=== PATIENT | male | born 1965 | race Caucasian/White ===

== ENCOUNTER 2022-06-03 00:36 | Emergency (ER) | payer BC ==
[2022-06-03] MEDS ORDERED: KETOROLAC 30 MG/ML INJ ONE (01:24)
[2022-06-03] MEDS ORDERED: HYDROMORPHONE HCL 0.5 MG/0.5 ML INJ ONE (01:24)
[2022-06-03] MEDS ORDERED: TAMSULOSIN 0.4 MG SR CAP ONE (01:24)
[2022-06-03] MEDS ORDERED: MAGNESIUM SULFATE 1 gm IVPB 1 GM/100 ML BAG IV ONE (01:24)
--- NOTE | 2022-06-03 03:15 | EDPHYS ---
Physician Documentation [facility] Name: Panfilo Vasquez Age: 57 yrs Sex: Male : 1965 Arrival Date: 06/03/2022 Time: 00:38 Bed 7 Private MD: Dylon Larsen ED Physician Elias Mejias HPI: 06/03 01:14 This 57 yrs old Male presents to ER via Ambulatory with complaints of Possible Kidney rn Stone. 01:14 The patient complains of pain in the right low back. The pain radiates to the abdomen rn and pelvis. Onset: The symptoms/episode began/occurred last night. Modifying factors: The symptoms are alleviated by. Associated signs and symptoms: Pertinent negatives: fever, hematuria. Severity of pain: At its worst the pain was moderate in the emergency department the pain is unchanged. The patient has experienced similar episodes in the past. The patient has not recently seen a physician. Historical: - Allergies: 00:58 No Known Allergies; kd3 - Home Meds: 00:58 metformin Oral [Active]; Glipizide Oral [Active]; kd3 01:02 metoprolol tartrate Oral [Active]; kd3 - PMHx: 00:58 Diabetes mellitus; kd3 01:02 Hypertensive disorder; kd3 - Immunization history:: Adult Immunizations up to date. - Social history:: Smoking status: Patient reports the use of cigarette tobacco products, smokes a pipe daily . - Family history:: not pertinent. - Hospitalizations: : No recent hospitalization is reported. ROS: 01:14 Constitutional: Negative for fever, chills, and weight loss, Cardiovascular: Negative rn for chest pain, palpitations, and edema, Respiratory: Negative for shortness of breath, cough, wheezing, and pleuritic chest pain, Abdomen/GI: + right lower abd pain Back: + right flank pain : + right testicular pain MS/Extremity: Negative for injury and deformity, Skin: Negative for injury, rash, and discoloration, Neuro: Negative for headache, weakness, numbness, tingling, and seizure. Exam: 01:14 Constitutional: This is a well developed, well nourished patient who is awake, alert, rn appears uncomfortable Head/Face: Normocephalic, atraumatic. Cardiovascular: Regular rate and rhythm. No pulse deficits. Respiratory: No increased work of breathing, no retractions or nasal flaring. Abdomen/GI: Soft, non-tender Back: No costovertebral tenderness. Skin: Warm, dry MS/ Extremity: Pulses equal, no cyanosis. Vital Signs: 01:01 Pulse 79; Resp 18; Pulse Ox 99% on R/A; kd3 01:02 BP 142 / 66; Weight 121.11 kg; Height 6 ft. 1 in. (185.42 cm); Pain 9/10; kd3 02:43 Temp 98.2; kd3 01:02 Body Mass Index 35.23 (121.11 kg, 185.42 cm) kd3 MDM: 00:41 Patient medically screened. rn 03:12 Differential diagnosis: nephrolithiasis. Data reviewed: vital signs, nurses notes, laboratory helper test result(s), radiologic studies, CT scan, and as a result, I will discharge patient. Counseling: I had a detailed discussion with the patient and/or guardian regarding: the historical points, exam findings, and any diagnostic results supporting the discharge/admit diagnosis, lab results, radiology results, the need for outpatient follow up, to return to the emergency department if symptoms worsen or persist or if there are any questions or concerns that arise at home. Response to treatment: the patient's symptoms have markedly improved after treatment, and as a result, I will discharge patient. Special discussion: I discussed with the patient/guardian in detail that at this point there is no indication for admission to the hospital. It is understood, however, that if the symptoms persist or worsen the patient needs to return immediately for re-evaluation. ED course: Pt passed kidney stone while giving urine sample, pain markedly improved. UA neg for infection. Feels much better, will dc home with return precautions.. 06/03 00:50 Order name: CT Stone Protocol rn 06/03 00:51 Order name: Urine Microscopic Only rn 06/03 00:50 Order name: IV Start; Complete Time: 01:50 rn 06/03 00:51 Order name: Urine Dipstick-Ancillary (obtain specimen); Complete Time: 02:42 rn 06/03 00:51 Order name: Cardiac monitoring; Complete Time: 01:50 rn 06/03 00:51 Order name: O2 Sat Monitoring; Complete Time: 01:50 rn Administered Medications: 01:49 Drug: Ketorolac 15 mg Route: IVP; Site: left forearm; kd3 03:26 Follow up: Response: No adverse reaction kd3 01:49 Drug: Magnesium Sulfate 1 grams Route: IVPB; Infused Over: 1 hrs; Site: right forearm; kd3 03:25 Follow up: Response: No adverse reaction; IV Status: Completed infusion kd3 01:50 Drug: Flomax (tamsulosin) 0.4 mg Route: PO; kd3 03:26 Follow up: Response: No adverse reaction; Pain is decreased kd3 01:50 Drug: Dilaudid (HYDROmorphone) 1 mg Route: IVP; Site: right forearm; kd3 03:26 Follow up: Response: No adverse reaction; Pain is decreased kd3 Disposition Summary: 06/03/22 03:14 Discharge Ordered Location: Home rn Problem: new rn Symptoms: have improved rn Condition: Stable rn Diagnosis - Calculus of kidney with calculus of ureter rn Followup: rn - With: Nik Jung MD - When: As needed - Reason: Recheck today's complaints, Re-evaluation by your physician Discharge Instructions: - Discharge Summary Sheet rn - Kidney Stones rn - Renal Colic rn - Dietary Guidelines to Help Prevent Kidney Stones rn Forms: - Medication Reconciliation Form rn - Thank You Letter rn - Antibiotic perianesthesia rn - Prescription Opioid Use rn Prescriptions: - Flomax 0.4 mg Oral capsule - take 1 capsule by ORAL route once daily As needed 1/2 hour following the same rn meal each day; 20 capsule; Refills: 0, Product Selection Permitted Signatures: Dispatcher [employer] EDElias Arnold MD MD rn Doucette, Kyli RN RN kd3 Corrections: (The following items were deleted from the chart) 02:59 00:51 CBC+H.LAB.BRZ ordered. EDMS EDMS 03:01 00:51 BASIC METABOLIC PANEL+C.LAB.BRZ ordered. EDMS EDMS
--- NOTE | 2022-06-03 03:15 | ER ---
Nurse's Notes [facility] Name: Panfilo Vasquez Age: 57 yrs Sex: Male : 1965 Arrival Date: 06/03/2022 Time: 00:38 Bed 7 Private MD: Dylon Larsen Diagnosis: Calculus of kidney with calculus of ureter Presentation: 06/03 00:56 Chief complaint: Patient states: about 4 o clock, I had a reddish tint urine. then kd3 about 9 o'clock I felt the pain start in the right kidney. I did take a hydrocodone that i had left over from a shoulder surgery but it didn't do anything. Coronavirus screen: Vaccine status: Patient reports receiving the 2nd dose of the covid vaccine. Ebola Screen: No symptoms or risks identified at this time. Initial Sepsis Screen: Does the patient meet any 2 criteria? No. Patient's initial sepsis screen is negative. Does the patient have a suspected source of infection? No. Patient's initial sepsis screen is negative. Risk Assessment: Do you want to hurt yourself or someone else? Patient reports no desire to harm self or others. Onset of symptoms was June 03, 2022. 00:56 Method Of Arrival: Ambulatory kd3 00:56 Acuity: CLAY 3 kd3 Triage Assessment: 00:58 General: Appears uncomfortable, Behavior is calm, cooperative. Pain: Complains of pain kd3 in right mid back and right low back. GI: No deficits noted. Historical: - Allergies: 00:58 No Known Allergies; kd3 - Home Meds: 00:58 metformin Oral [Active]; Glipizide Oral [Active]; kd3 01:02 metoprolol tartrate Oral [Active]; kd3 - PMHx: 00:58 Diabetes mellitus; kd3 01:02 Hypertensive disorder; kd3 - Immunization history:: Adult Immunizations up to date. - Social history:: Smoking status: Patient reports the use of cigarette tobacco products, smokes a pipe daily . - Family history:: not pertinent. - Hospitalizations: : No recent hospitalization is reported. Screenin:00 Abuse screen: Denies threats or abuse. Denies injuries from another. Nutritional kd3 screening: No deficits noted. Tuberculosis screening: No symptoms or risk factors identified. Fall Risk None identified. Assessment: 02:58 GI: Bowel sounds present X 4 quads. Abd is soft and non tender. kd3 Vital Signs: 01:01 Pulse 79; Resp 18; Pulse Ox 99% on R/A; kd3 01:02 BP 142 / 66; Weight 121.11 kg; Height 6 ft. 1 in. (185.42 cm); Pain 9/10; kd3 02:43 Temp 98.2; kd3 01:02 Body Mass Index 35.23 (121.11 kg, 185.42 cm) kd3 ED Course: 00:38 Patient arrived in ED. mr 00:39 Dylon Larsen MD is Private Physician. mr 00:41 Elias Mejias MD is Attending Physician. rn 00:53 Mady Nicholas RN is Primary Nurse. kd3 00:58 Triage completed. kd3 00:58 Arm band placed on right wrist. kd3 01:00 Patient has correct armband on for positive identification. kd3 02:05 CT Stone Protocol In Process Unspecified. EDMS 03:14 Nik Jung MD is Referral Physician. rn 03:25 No provider procedures requiring assistance completed. IV discontinued, intact, kd3 bleeding controlled, No redness/swelling at site. Pressure dressing applied. Administered Medications: 01:49 Drug: Ketorolac 15 mg Route: IVP; Site: left forearm; kd3 03:26 Follow up: Response: No adverse reaction kd3 01:49 Drug: Magnesium Sulfate 1 grams Route: IVPB; Infused Over: 1 hrs; Site: right forearm; kd3 03:25 Follow up: Response: No adverse reaction; IV Status: Completed infusion kd3 01:50 Drug: Flomax (tamsulosin) 0.4 mg Route: PO; kd3 03:26 Follow up: Response: No adverse reaction; Pain is decreased kd3 01:50 Drug: Dilaudid (HYDROmorphone) 1 mg Route: IVP; Site: right forearm; kd3 03:26 Follow up: Response: No adverse reaction; Pain is decreased kd3 Medication: 03:25 VIS not applicable for this client. kd3 Outcome: 03:14 Discharge ordered by . rn 03:25 Discharged to home ambulatory. kd3 03:25 Condition: stable 03:25 Discharge instructions given to patient, Instructed on discharge instructions, follow up and referral plans. medication usage, Demonstrated understanding of instructions, follow-up care, medications, Prescriptions given X 1. 03:26 Patient left the ED. kd3 Signatures: Dispatcher [employer] Carlyn Carlson Roman, MD MD rn Doucette, Kyli, RN RN kd3
[2022-06-03 03:31] LABS: Urine Bacteria <20 /HPF (NONE SEEN); Urine RBC >50 /HPF (NONE SEEN)
[2022-06-03 04:00] VITALS: O2SAT 99
[2022-06-03 04:01] VITALS: BP 142/66
[2022-06-03 04:03] VITALS: TEMP 98.2
--- NOTE | 2022-06-03 14:23 | RAD REPORT ---
EXAM DESCRIPTION: CT - Stone Protocol - 06/03/2022 5:57 am COMPARISON: None. CLINICAL HISTORY: [facility] MAIN right sided kidney stone TECHNIQUE: CT of the abdomen and pelvis was acquired without IV contrast material. Coronal and sag ittal reconstructions were obtained. Automated exposure control was utilized on this examination as a dose lowering technique. FINDINGS: Lung bases: A few tree-in-bud opacities are present in the right lower lobe. *Evaluation of solid organs is limited due to lack of IV contrast. Liver: Normal. Gallbladder and biliary: Normal gallbladder. Unremarkable biliary tree. Pancreas: Normal. Spleen: Normal. Adrenal glands: Normal adrenal glands. Kidneys: Mild right hydronephrosis. Nonobstructing renal calculi measure up to 5 mm on the right and 6 mm on the left. Mild bilateral perinephric fat stranding is present. Stomach and Small Bowel: The stomach and small bowel are normal. Urinary bladder: Normal. Prostate/Male Urogenital: Normal. Colon and Appendix: The colon is unremarkable. No evidence of appendicitis. Retroperitoneum and lymph nodes: Normal. Vascular: Mild atherosclerosis. Peritoneal cavity: No ascites or free air. Musculoskeletal and soft tissues: Soft tissues are unremarkable. Lumbar spondylosis is present. Grade 2 anterolisthesis L5 on S1. Bilateral L5 pars defects are present. No aggressive bone lesions. No compression fracture. IMPRESSION: ABDOMEN/PELVIS IMPRESSION: 1. Mild right hydronephrosis without visualized obstructing calculus. This could be seen with a recen tly passed stone. Bilateral nonobstructing renal calculi are present. 2. A few tree-in-bud opacities in the right lower lobe likely infectious or inflammatory. Electronically signed by: Juan Murray MD 06/03/2022 3:53 AM CDT Due to temporary technical issues with the PACS/Fluency reporting system, reports are being signed by the in house radiologist without review as a courtesy to ensure prompt reporting. The interpreting r adiologist is fully responsible for the content of the report.
== END 2022-06-03 03:26 | disposition home or self-care (01) ==
LOC: ER 00:36
DX: N20.2 Calculus of kidney with calculus of ureter (principal); E11.9 Type 2 diabetes mellitus without complications; I10 Essential (primary) hypertension; F17.290 Nicotine dependence, other tobacco product, uncomplicated
CPT/HCPCS: 81015; 76377; 74176; J3475; J1170

== ENCOUNTER 2024-11-12 13:16 | Emergency (ER) | payer BC ==
[2024-11-12] MEDS ORDERED: ONDANSETRON 4 MG/2 ML VIAL ONE (14:02)
[2024-11-12] MEDS ORDERED: HYDROMORPHONE HCL 1 MG/ML INJ ONE (14:02)
[2024-11-12] MEDS ORDERED: NA CHLORIDE 0.9% 1,000 ML ONE (14:02)
[2024-11-12 14:45] LABS: Absolute Basophils 0.1 K/uL (0-0.5); Absolute Eosinophils 0.4 K/uL (0-0.5); Absolute Lymphocytes (CBC) 1.8 K/uL (0.7-4.9); Absolute Monocytes 0.9 K/uL (0.1-1.3); Absolute Neutrophil 5.2 K/uL (1.8-8.0); Basophils % 1.3 % (0-1.3); Hematocrit 46.9 % (39.6-49.0); Lymphocytes % 21.6 % (15.3-44.8); MCH 31.8 pg (27.0-35.0); MCHC 34.1 g/dL (32.0-36.0); MCV 93.2 fL (80-100); MPV 7.7 fL (7.6-11.3); Neutrophils % 61.1 % (41.7-73.7); Nucleated Red Blood Cells % 0.1 % (0-0); Platelets 242 thou/uL (152-406); RBC Red Blood Cell Count 5.04 M/uL (4.33-5.43)
[2024-11-12 14:53] LABS: Specific Gravity 1.022 (1.005-1.030); Sqamous Epithelial None Seen /HPF (None Seen); Urine Bacteria None Seen /HPF (<20); Urine Bilirubin NEGATIVE (Negative); Urine Blood 3+ (OVER) (Negative); Urine Clarity Clear (Clear); Urine Color Yellow (Yellow); Urine Culture Reflex Order NOT NEEDED; Urine Glucose 4+ (Over) (Negative); Urine Ketones NEGATIVE (Negative); Urine Microscopic Reflex YN ORDER UMIC; Urine Mucus Slight /HPF (None Seen); Urine Nitrite NEGATIVE (Negative); Urine Protein NEGATIVE (Negative); Urine RBC >50 /HPF (None Seen); Urine Urobilinogen Normal (Normal); Urine WBC <5 /HPF (<5); Urine Yeast (Budding) Trace /HPF (None Seen); Urine pH 5.5 (5.0-7.0)
[2024-11-12 14:57] LABS: Albumin 3.7 g/dL (3.4-5.0); Anion Gap 7.1 mEq/L (5.0-15.0); Bilirubin Total 0.4 mg/dL (0.2-1.0); Globulin 3.8 g/dL (2.3-3.5); Potassium 4.1 mEq/L (3.5-5.1); Protein, Total 7.5 g/dL (6.4-8.2)
[2024-11-12] MEDS ORDERED: KETOROLAC 30 MG/ML INJ ONE (15:18)
--- NOTE | 2024-11-12 15:51 | RAD REPORT ---
EXAMINATION: CT Stone Protocol CLINICAL INDICATION: Male, 59 years old. right flank pain TECHNIQUE: CT abdomen and pelvis was performed, without IV contrast, as per department protocol. Axia l, sagittal and coronal reconstructions were obtained. One or more of the following dose reduction techniques were used: Automated exposure control, adjustment of the mA and kV according to the patien t size, and iterative reconstruction. Unless otherwise specified, incidental findings do not require dedicated imaging follow-up. COMPARISON: 06/30/2024 FINDINGS: The lack of intravenous contrast limits the sensitivity of this exam for evaluation of solid visceral organs, vascular structures, and retroperitoneum. LOWER CHEST: The visualized lung bases are clear. LIVER: Normal in size and contour. No focal lesion. BILIARY SYSTEM: Gallbladder is decompressed limiting evaluation. No other Suspicious abnormalities. SPLEEN: Normal size. No focal lesion. PANCREAS: No mass, ductal dilation, or zara-pancreatic fluid. ADRENALS: Normal; no mass. KIDNEYS AND URETERS: Normal size and contour. No hydronephrosis. Bilateral nonobstructing renal calcu li more abundant on the right largest on the right is at the lower pole measuring 7 mm, largest on the left is at the interpolar region measuring 9 mm URINARY BLADDER: Normal contour. GASTROINTESTINAL TRACT: No evidence of bowel obstruction, significant free fluid, free air or abscess . APPENDIX: Normal appendix. LYMPH NODES: No lymphadenopathy. MUSCULOSKELETAL: Grade 1 spondylolisthesis at L5-S1. No acute or suspicious osseous abnormality. ADDITIONAL FINDINGS: None. IMPRESSION: Bilateral nonobstructing renal calculi. No other acute or concerning abnormalities in the abdomen or pelvis, with evaluation limited by lack of IV contrast.
--- NOTE | 2024-11-12 16:36 | EDPHYS ---
Physician Documentation [facility] Name: Panfilo Vasquez Age: 59 yrs Sex: Male : 1965 Arrival Date: 11/12/2024 Time: 13:16 Bed 12 Private MD: ED Physician Aurelio Mercado HPI: 11/12 14:00 This 59 yrs old Male presents to ER via Ambulatory with complaints of Possible Kidney cp Stone. 14:00 The patient complains of pain in the right flank. The pain radiates to the right lower cp quadrant and right groin. 14:00 Onset: The symptoms/episode began/occurred last night, and became worse today. cp Associated signs and symptoms: Pertinent positives: hematuria, nausea, Pertinent negatives: diarrhea, fever, pain radiating to the lower extremities. Severity of pain: in the emergency department the pain is unchanged despite home interventions. The patient has experienced similar episodes in the past, today's symptoms are similar, to when the patient was apparently diagnosed with kidney stone. Historical: - Allergies: 13:25 No Known Allergies; cm10 - Home Meds: 13:25 Glipizide Oral [Active]; Metformin Oral [Active]; Metoprolol Tartrate Oral [Active]; cm10 Xarelto oral [Active]; Mounjaro subcutaneous [Active]; - PMHx: 13:25 diabetes mellitus; Hypertensive disorder; cm10 - Immunization history:: Adult Immunizations up to date. - Infectious Disease History:: Denies. - Social history:: Smoking status: Patient reports the use of cigarette tobacco products, PIPE. ROS: 14:05 Constitutional: Negative for body aches, chills, fever, poor PO intake, cp 14:05 Eyes: Negative for injury, pain, redness, and discharge, cp 14:05 ENT: Negative for drainage from ear(s), ear pain, sore throat, difficulty swallowing, difficulty handling secretions, 14:05 Cardiovascular: Negative for chest pain, edema, palpitations, 14:05 Respiratory: Negative for cough, shortness of breath, wheezing, 14:05 Abdomen/GI: Positive for abdominal pain, nausea, Negative for vomiting, diarrhea, constipation, black/tarry stool, rectal bleeding, 14:05 Back: Positive for flank pain, on the right, 14:05 : Positive for hematuria, 14:05 Neuro: Negative for altered mental status, headache, weakness, 14:05 All other systems are negative, Exam: 14:10 Constitutional: The patient appears in no acute distress, alert, awake, non-toxic, well cp developed, well nourished, uncomfortable, 14:10 Head/Face: Normocephalic, atraumatic. cp 14:10 Eyes: Periorbital structures: appear normal, Conjunctiva: normal, no exudate, no injection, Sclera: no appreciated abnormality, Lids and lashes: appear normal, bilaterally, 14:10 ENT: External ear(s): are unremarkable, Nose: is normal, Mouth: Lips: moist, Oral mucosa: moist, Posterior pharynx: Airway: no evidence of obstruction, patent, 14:10 Chest/axilla: Inspection: normal, 14:10 Cardiovascular: Rate: normal, Rhythm: regular, Edema: is not appreciated, JVD: is not appreciated, 14:10 Respiratory: the patient does not display signs of respiratory distress, Respirations: normal, no use of accessory muscles, no retractions, labored breathing, is not present, Breath sounds: are clear throughout, no decreased breath sounds, 14:10 Abdomen/GI: Inspection: abdomen appears normal, Bowel sounds: active, all quadrants, Palpation: soft, in all quadrants, severe abdominal tenderness, in the right lower quadrant and right flank, rebound tenderness, is not appreciated, voluntary guarding, is elicited in the right flank and right lower quadrant, 14:10 Neuro: Orientation: to person, place \T\ time. Mentation: is normal, Motor: moves all fours, no focal deficits, Vital Signs: 13:27 BP 156 / 101; Pulse 82; Resp 16; Temp 98.1(O); Pulse Ox 99% on R/A; Weight 117.93 kg; cm10 Height 6 ft. 1 in. ; Pain 10/10; 17:02 BP 121 / 82; Pulse 65; Resp 18; Pulse Ox 100% ; cm10 13:27 Body Mass Index 34.30 (117.93 kg, 185.42 cm) cm10 13:27 Pain Scale: Adult cm10 MDM: 13:31 Medical Screening Exam initiated cp 14:00 Differential diagnosis: nephrolithiasis, pyelonephritis, UTI, testicular torsion, cp colitis. 16:35 Data reviewed: vital signs, nurses notes, lab test result(s), radiologic studies, CT cp scan. 16:35 I considered the following discharge prescriptions or medication management in the emergency department Medications were administered in the Emergency Department. See MAR. Care significantly affected by the following chronic conditions: Diabetes, Hypertension. Counseling: I had a detailed discussion with the patient and/or guardian regarding the historical points, exam findings, and any diagnostic results supporting the discharge/admit diagnosis, lab results, radiology results, the need for outpatient follow up, a urologist, to return to the emergency department if symptoms worsen or persist or if there are any questions or concerns that arise at home. Response to treatment: the patient's symptoms have markedly improved after treatment, and as a result, I will discharge patient. 11/12 13:52 Order name: CBC with Diff; Complete Time: 15:10 11/12 15:10 Interpretation: Normal except: EOSINOPHIL % 5.0. 11/12 13:52 Order name: CMP; Complete Time: 15:10 11/12 15:10 Interpretation: Normal except: GLUC 157; BUN 20; GFR 73; AST 12; GLOB 3.8; A/G 1.0. 11/12 13:52 Order name: Lipase; Complete Time: 15:10 11/12 13:52 Order name: Urinalysis w/ reflexes; Complete Time: 15:10 11/12 15:10 Interpretation: Normal except: UGLUC 4+ (Over); UBLD 3+ (OVER); URBC >50; BYST Trace. 11/12 13:52 Order name: CT Stone Protocol; Complete Time: 16:02 11/12 16:03 Interpretation: Report reviewed. 11/12 13:52 Order name: IV Saline Lock; Complete Time: 14:25 11/12 13:52 Order name: Labs collected and sent; Complete Time: 14:25 11/12 16:03 Order name: PO challenge; Complete Time: 16:08 Administered Medications: 14:15 Drug: Ondansetron IVP 4 mg IVP once; over 2 minutes Route: IVP; Site: right antecubital;rs5 14:33 Follow up: Response: No adverse reaction; Nausea is decreased rs5 14:15 Drug: NS 0.9% IV 1000 ml IV at 1 bolus Per protocol; to be given as a bolus over 60 rs5 minutes Route: IV; Rate: 1 bolus; Site: right antecubital; 15:01 Follow up: Response: No adverse reaction; IV Status: Completed infusion; IV Intake: rs5 1000ml 14:15 Drug: HYDROmorphone IVP 1 mg IVP once Route: IVP; Site: right antecubital; rs5 14:22 Follow up: Response: No adverse reaction; Pain is decreased rs5 15:22 Drug: Ketorolac IVP 15 mg IVP once Route: IVP; Site: right antecubital; ss 15:44 Follow up: Response: No adverse reaction; Pain is decreased rs5 17:02 Drug: HYDROcodone-acetaminophen PO 10 mg-325 mg 1 tabs PO once Route: PO; cm10 Disposition Summary: 11/12/24 16:36 Discharge Ordered Notes: Location: Home cp Condition: Stable cp Diagnosis - Calculus of kidney - bilateral cp Followup: cp - With: Nik Jung MD - When: 2 - 3 days - Reason: Recheck today's complaints Discharge Instructions: - Discharge Summary Sheet cp - Kidney Stones cp - Renal Colic cp Forms: - Medication Reconciliation Form cp - Antibiotic Education cp - Prescription Opioid Use cp - Patient Portal Instructions cp - Leadership Thank You Letter cp Prescriptions: - acetaminophen-codeine 300-30 mg Oral tablet - take 2 tablet ORAL route every 8-12 hours; 16 tablet; Refills: 0, Product cp Selection Permitted - Zofran 4 mg Oral Tablet - take 1 tablet ORAL route every 12 hours As needed; 20 tablet; Refills: 0, cp Product Selection Permitted - Diclofenac Sodium 75 mg Oral Tablet Sustained Release - take 1 tablet ORAL route 2 times per day; 30 tablet; Refills: 0, Product cp Selection Permitted Signatures: Dispatcher [employer] EDMS Liz Figueroa RN RN ss Aurelio Romero PA PA cp Jhonatan Smalls RN RN rs5 Liss Lin RN RN cm10 Corrections: (The following items were deleted from the chart) 13:52 13:52 CBC+H.LAB.BRZ ordered. EDMS EDMS 13:52 13:52 COMPREHENSIVE METABOLIC PANEL+C.LAB.BRZ ordered. EDMS EDMS 13:52 13:52 LIPASE+C.LAB.BRZ ordered. EDMS EDMS 13:52 13:52 Urinalysis+U.LAB.BRZ ordered. EDMS EDMS
--- NOTE | 2024-11-12 16:36 | ER ---
Nurse's Notes [facility] Name: Panfilo Vasquez Age: 59 yrs Sex: Male : 1965 Arrival Date: 11/12/2024 Time: 13:16 Bed 12 Private MD: Diagnosis: Calculus of kidney-bilateral Presentation: 11/12 13:27 Chief complaint: Patient states: RIGHT FLANK PAIN THAT RADIATES TO RLQ ABDOMINAL PAIN cm10 ONSET LAST NIGHT. PT STATES THAT HE HAS A HISTORY OF KIDNEY STONES AND PAIN FEEL SIMILAR. Coronavirus screen: Client denies travel out of the [place] in the last 14 days. Ebola Screen: Patient denies travel to an Ebola-affected area in the 21 days before illness onset. No symptoms or risks identified at this time. Initial Sepsis Screen: Does the patient meet any 2 criteria? No. Patient's initial sepsis screen is negative. Does the patient have a suspected source of infection? No. Patient's initial sepsis screen is negative. Risk Assessment: Do you want to hurt yourself or someone else? Patient reports no desire to harm self or others. Onset of symptoms was November 11, 2024. 13:27 Method Of Arrival: Ambulatory cm10 13:27 Acuity: CLAY 3 cm10 Triage Assessment: 13:29 General: Appears in no apparent distress. uncomfortable, Behavior is calm, cooperative. cm10 Pain: Complains of pain in right flank Pain radiates to right lower quadrant Pain currently is 10 out of 10 on a pain scale. Neuro: No deficits noted. Level of Consciousness is awake, alert, obeys commands, Oriented to person, place, time, situation, Appropriate for age. Respiratory: No deficits noted. Airway is patent Respiratory effort is even, unlabored, Respiratory pattern is regular, symmetrical. Historical: - Allergies: 13:25 No Known Allergies; cm10 - Home Meds: 13:25 Glipizide Oral [Active]; Metformin Oral [Active]; Metoprolol Tartrate Oral [Active]; cm10 Xarelto oral [Active]; Mounjaro subcutaneous [Active]; - PMHx: 13:25 diabetes mellitus; Hypertensive disorder; cm10 - Immunization history:: Adult Immunizations up to date. - Infectious Disease History:: Denies. - Social history:: Smoking status: Patient reports the use of cigarette tobacco products, PIPE. Screenin:33 [facility] ED Fall Risk Assessment (Adult) History of falling in the last 3 months, rs5 including since admission No falls in past 3 months (0 pts) Confusion or Disorientation No (0 pts) Intoxicated or Sedated No (0 pts) Impaired Gait No (0 pts) Mobility Assist Device Used No (0 pt) Altered Elimination No (0 pt) Score/Fall Risk Level 0 - 2 = Low Risk Oriented to surroundings, Maintained a safe environment. Abuse screen: Denies threats or abuse. Nutritional screening: No deficits noted. Tuberculosis screening: No symptoms or risk factors identified. Assessment: 13:33 General: Appears in no apparent distress. uncomfortable, Behavior is calm, cooperative. rs5 13:33 Pain: Complains of pain in right flank pain Pain currently is 9 out of 10 on a pain rs5 scale. Quality of pain is described as aching, Is continuous. Neuro: Level of Consciousness is awake, alert, obeys commands, Oriented to person, place, time, situation. Cardiovascular: Patient's skin is warm and dry. Respiratory: Airway is patent Respiratory effort is even, unlabored, Respiratory pattern is regular, symmetrical. GI: Bowel sounds present X 4 quads. Abd is soft and non tender X 4 quads. : Reports inability to void. EENT: No signs and/or symptoms were reported regarding the EENT system. Derm: Skin is intact, Skin is pink, warm \T\ dry. Musculoskeletal: Range of motion: intact in all extremities. 14:42 Reassessment: Patient and/or family updated on plan of care and expected duration. Pain rs5 level reassessed. Patient is alert, oriented x 3, equal unlabored respirations, skin warm/dry/pink. 15:59 Reassessment: Patient and/or family updated on plan of care and expected duration. Pain rs5 level reassessed. Patient is alert, oriented x 3, equal unlabored respirations, skin warm/dry/pink. 17:01 Reassessment: Patient and/or family updated on plan of care and expected duration. Pain rs5 level reassessed. Patient is alert, oriented x 3, equal unlabored respirations, skin warm/dry/pink. Vital Signs: 13:27 BP 156 / 101; Pulse 82; Resp 16; Temp 98.1(O); Pulse Ox 99% on R/A; Weight 117.93 kg; cm10 Height 6 ft. 1 in. ; Pain 10/10; 17:02 BP 121 / 82; Pulse 65; Resp 18; Pulse Ox 100% ; cm10 13:27 Body Mass Index 34.30 (117.93 kg, 185.42 cm) cm10 13:27 Pain Scale: Adult cm10 ED Course: 13:18 Patient arrived in ED. mr 13:21 Aurelio Romero PA is PHCP. cp 13:21 Elias Mejias MD is Attending Physician. cp 13:28 Triage completed. cm10 13:29 Arm band placed on right wrist. Patient placed in an exam room, on a stretcher. cm10 13:30 Jhonatan Smalls, ANA is Primary Nurse. rs5 13:30 Patient has correct armband on for positive identification. Placed in gown. Bed in low rs5 position. Call light in reach. Side rails up X2. 13:35 Inserted saline lock: 20 gauge in right antecubital area, using aseptic technique. rs5 Blood collected. Flushed with 10 mL NS. 14:06 CT Stone Protocol In Process Unspecified. EDMS 16:23 No provider procedures requiring assistance completed. rs5 16:30 Aurelio Mercado MD is Attending Physician. cp 16:36 Nik Jung MD is Referral Physician. cp 17:00 Provided Education on: discharge instructions. rs5 17:00 IV discontinued, intact, bleeding controlled, No redness/swelling at site. Pressure rs5 dressing applied. Administered Medications: 14:15 Drug: Ondansetron IVP 4 mg IVP once; over 2 minutes Route: IVP; Site: right antecubital;rs5 14:33 Follow up: Response: No adverse reaction; Nausea is decreased rs5 14:15 Drug: NS 0.9% IV 1000 ml IV at 1 bolus Per protocol; to be given as a bolus over 60 rs5 minutes Route: IV; Rate: 1 bolus; Site: right antecubital; 15:01 Follow up: Response: No adverse reaction; IV Status: Completed infusion; IV Intake: rs5 1000ml 14:15 Drug: HYDROmorphone IVP 1 mg IVP once Route: IVP; Site: right antecubital; rs5 14:22 Follow up: Response: No adverse reaction; Pain is decreased rs5 15:22 Drug: Ketorolac IVP 15 mg IVP once Route: IVP; Site: right antecubital; 15:44 Follow up: Response: No adverse reaction; Pain is decreased rs5 17:02 Drug: HYDROcodone-acetaminophen PO 10 mg-325 mg 1 tabs PO once Route: PO; cm10 Medication: 16:24 VIS not applicable for this client. rs5 Intake: 15:01 IV: 1000ml; Total: 1000ml. rs5 Outcome: 16:36 Discharge ordered by MD. cp 17:00 Discharged to home ambulatory, rs5 17:00 Condition: stable rs5 17:00 Discharge instructions given to patient, family, Instructed on discharge instructions, follow up and referral plans. medication usage, Demonstrated understanding of instructions, follow-up care, medications, Prescriptions given X 2, 17:05 Patient left the ED. rs5 Signatures: Dispatcher [employer] EDDE Carlyn Durbin, Reg Reg mr Liz Figueroa RN RN Aurelio Zaman PA PA cp Sotelo, Ricky, RN RN rs5 Liss Lin RN RN cm10
[2024-11-12] MEDS ORDERED: HYDROCODONE/APAP 10/325 TAB ONE (16:51)
[2024-11-12 17:10] VITALS: TEMP 98.1
[2024-11-12 17:12] VITALS: BP 121/82; O2SAT 100
== END 2024-11-12 17:05 | disposition home or self-care (01) ==
LOC: ER 13:16
DX: N20.0 Calculus of kidney (principal); E11.9 Type 2 diabetes mellitus without complications; I10 Essential (primary) hypertension
CPT/HCPCS: 96361; 85025; 81001; 36415; 83690; 80053; 76377; 74176; 96375; 96374; 99284; J1171; J2405; J7030